=== PATIENT | female | born 1980 ===

== ENCOUNTER 2022-09-09 09:46 | Outpatient (CLI) | payer OTHER | END 2022-09-09 09:53 | disposition home or self-care (01) | LOC: LAB 09:46 | PROVIDERS: ATTEND Legal Medicine | DX: D64.9 Anemia, unspecified (principal); N39.9 Disorder of urinary system, unspecified; D68.9 Coagulation defect, unspecified; I10 Essential (primary) hypertension; E03.8 Other specified hypothyroidism; N91.2 Amenorrhea, unspecified ==

== ENCOUNTER → 2024-03-10 | Outpatient (CLI) | payer OTHER | END | disposition home or self-care (01) | LOC: MAMO-SONO 13:28 | PROVIDERS: ATTEND Obstetrics & Gynecology Gynecology | DX: N64.4 Mastodynia (principal); N64.9 Disorder of breast, unspecified; Z12.31 Encounter for screening mammogram for malignant neoplasm of breast ==